=== PATIENT | female | born 1980 | race Caucasian/White ===

== ENCOUNTER 2017-07-13 03:09 | Emergency (ER) | payer BC, OTHER ==
[2017-07-13 03:21] VITALS: BP 94/56; PULSE 110; RESP 18; TEMP 98.4; O2SAT 96
--- NOTE | 2017-07-13 03:38 | C.PDOC ---
History Of Present Illness 37 year old female with a Hx of anxiety presents to the ER via EMS with a complaint of anxiety after having a domestic dispute. Patient states the police were called and insisted that she come to the ER for an evaluation. Patient states she feels very anxious and like her heart is racing; when asked what happened she says the problem is too personal to discuss. Patient notes she used to take xanax in the past but felt is was affecting her mood so she stopped taking it. Denies chest pain or SOB. Time Seen by Provider: 07/13/17 03:37 Chief Complaint (Nursing): Anxiety History Per: Patient History/Exam Limitations: no limitations Onset/Duration Of Symptoms: Hrs Current Symptoms Are (Timing): Still Present Suicide/Self Injury Attempted (Context): None Associated Symptoms: Anxiety. denies: Depression, Suicidal Thoughts, Suicidal Plan Involuntary Hold By: None Recent travel outside of the [place]: No Past Medical History Reviewed: Historical Data, Nursing Documentation, Vital Signs Vital Signs: Last Vital Signs Temp 98.4 F 07/13/17 03:14 Pulse 110 H 07/13/17 03:14 Resp 18 07/13/17 03:14 BP 94/56 L 07/13/17 03:14 Pulse Ox 96 07/13/17 05:14 - Medical History PMH: HTN Family History: States: Unknown Family Hx - Social History Hx Alcohol Use: Yes Hx Substance Use: No Review Of Systems Constitutional: Negative for: Fever, Chills Cardiovascular: Positive for: Palpitations. Negative for: Chest Pain Respiratory: Negative for: Shortness of Breath Gastrointestinal: Negative for: Nausea, Vomiting Psych: Positive for: Anxiety Physical Exam - Physical Exam Appears: Non-toxic, Other (Tearful) Skin: Normal Color, Warm, Dry Head: Atraumatic, Normacephalic Eye(s): bilateral: Normal Inspection Oral Mucosa: Moist Neck: Normal, Supple Chest: Symmetrical, No Tenderness Cardiovascular: Rhythm Regular (HR 120 approximately) Respiratory: Normal Breath Sounds, No Rales, No Rhonchi, No Wheezing Gastrointestinal/Abdominal: Soft, No Tenderness Neurological/Psych: Oriented x3, Normal Speech ED Course And Treatment O2 Sat by Pulse Oximetry: 96 (Room air) Pulse Ox Interpretation: Normal Medical Decision Making Medical Decision Making: Impression: Anxiety exacerbation. Xanax administered, on reevaluation, patient reports improvement and feel comfortable going home. Disposition - Disposition Referrals: [facility] [Outside] Disposition: HOME/ ROUTINE Disposition Time: 04:15 Condition: FAIR Prescriptions: Alprazolam [Xanax] 0.25 mg PO TID #15 tablet Instructions: Anxiety (ED) Forms: [facility] (Frisian) - Clinical Impression Clinical Impression: Anxiety - Scribe Statement The provider has reviewed the documentation as recorded by the Scribe Freddie James All medical record entries made by the Scribe were at my direction and personally dictated by me. I have reviewed the chart and agree that the record accurately reflects my personal performance of the history, physical exam, medical decision making, and the department course for this patient. I have also personally directed, reviewed, and agree with the discharge instructions and disposition.
== END 2017-07-13 04:10 | disposition home or self-care (01) ==
LOC: C.ER 03:09
DX: F41.9 Anxiety disorder, unspecified (principal)

== ENCOUNTER 2018-04-08 16:31 | Emergency (ER) | payer OTHER ==
[2018-04-08 16:47] VITALS: TEMP 99.5; O2SAT 98
[2018-04-08] MEDS ORDERED: Bacitracin 500 Units/gm Oint Foilpak UD TOP ONE (16:58)
--- NOTE | 2018-04-08 17:55 | CT ---
Date of service: 04/08/2018 PROCEDURE: CT HEAD WITHOUT CONTRAST. HISTORY: dizziness COMPARISON: None available. TECHNIQUE: Axial computed tomography images were obtained through the head/brain without intravenous contrast. Radiation dose: Total exam DLP = 982.97 mGy-cm. This CT exam was performed using one or more of the following dose reduction techniques: Automated exposure control, adjustment of the mA and/or kV according to patient size, and/or use of iterative reconstruction technique. FINDINGS: Streak artifact obscures evaluation of the skull base. HEMORRHAGE: No intracranial hemorrhage. BRAIN: No mass effect or edema. No atrophy or chronic microvascular ischemic changes. VENTRICLES: No hydrocephalus. CALVARIUM: Unremarkable. PARANASAL SINUSES: Unremarkable as visualized. No significant inflammatory changes. MASTOID AIR CELLS: Unremarkable as visualized. No inflammatory changes. OTHER FINDINGS: None. IMPRESSION: No acute intracranial pathology identified.
--- NOTE | 2018-04-08 18:00 | C.PDOC ---
History Of Present Illness 37 year female presents to the ED for evaluation of a head injury s/p trip and fall a few days ago. Patient reports ongoing forehead swelling and feeling lightheaded. Denies LOC, fever, other injuries, and any other associated symptoms. - HPI Time Seen by Provider: 04/08/18 16:55 Chief Complaint (Nursing): Trauma History Per: Patient History/Exam Limitations: no limitations Onset/Duration Of Symptoms: Hrs, Days Past Medical History Reviewed: Historical Data, Nursing Documentation, Vital Signs Vital Signs: Last Vital Signs Temp 99.5 F 04/08/18 16:43 Pulse 75 04/08/18 16:43 Resp 18 04/08/18 16:43 BP 168/115 H 04/08/18 16:43 Pulse Ox 98 04/08/18 16:43 - Medical History PMH: Anxiety, Depression, HTN Family History: States: Unknown Family Hx - Social History Hx Alcohol Use: Yes Hx Substance Use: No - Immunization History Hx Tetanus Toxoid Vaccination: No Hx Influenza Vaccination: No Hx Pneumococcal Vaccination: No Review Of Systems Except As Marked, All Systems Reviewed And Found Negative. Constitutional: Positive for: Other (Trip and fall. ) Physical Exam - Physical Exam Appears: Non-toxic, No Acute Distress Skin: Normal Color, Warm, Dry, Other (abrasion to the forehead, not infected.) Head: Atraumatic, Normacephalic Eye(s): bilateral: Normal Inspection, PERRL, EOMI Nose: Normal Oral Mucosa: Moist Chest: Symmetrical Cardiovascular: Rhythm Regular, No Murmur Respiratory: Normal Breath Sounds, No Rales, No Rhonchi, No Wheezing Gastrointestinal/Abdominal: Normal Exam, Soft, No Tenderness Extremity: Bilateral: Atraumatic, Normal Color And Temperature, Normal ROM Neurological/Psych: Oriented x3, Normal Speech Gait: Steady ED Course And Treatment O2 Sat by Pulse Oximetry: 98 (RA) Pulse Ox Interpretation: Normal - CT Scan/US CT Head Other Rad Studies (CT/US): Read By Radiologist CT/US Interpretation: FINDINGS: Streak artifact obscures evaluation of the skull base. HEMORRHAGE: No intracranial hemorrhage. BRAIN: No mass effect or edema. No atrophy or chronic microvascular ischemic changes. VENTRICLES: No hydrocephalus. CALVARIUM: Unremarkable. PARANASAL SINUSES: Unremarkable as visualized. No significant inflammatory changes. MASTOID AIR CELLS: Unremarkable as visualized. No inflammatory changes. OTHER FINDINGS: None. IMPRESSION: No acute intracranial pathology identified. Medical Decision Making Medical Decision Making: Plan: --CT head w/out contrast. --Given Ibuprofen. --Bacitracin was applied. --Urine HCG. Progress/Update: CT of the head was viewed by me and appeared normal. Patient stable for discharge home. Advised to follow up as needed. Disposition Counseled Patient/Family Regarding: Studies Performed, Diagnosis, Need For Followup, Rx Given - Disposition Referrals: Alena Leone MD [Staff Provider] - Disposition: HOME/ ROUTINE Disposition Time: 17:59 Condition: STABLE Additional Instructions: follow up with your doctor or medical clinic within 2 days call to make an appointment take medications as prescribed return to ER if symptoms worsens or progress apply bacitracin to wound twice daily Prescriptions: Naproxen [Naprosyn] 500 mg PO BID PRN #16 tab PRN Reason: Pain, Moderate (4-7) Instructions: Closed Head Injury (DC), Minor Head Injury, Skin Abrasions (DC) Forms: [facility] (Ukrainian), General Discharge Instructions - Clinical Impression Clinical Impression: Head injury, Abrasion - Scribe Statement The provider has reviewed the documentation as recorded by the Scribe (Afua Nicole) Provider Attestation: All medical record entries made by the Scribe were at my direction and personally dictated by me. I have reviewed the chart and agree that the record accurately reflects my personal performance of the history, physical exam, medical decision making, and the department course for this patient. I have also personally directed, reviewed, and agree with the discharge instructions and disposition.
[2018-04-08] MEDS ORDERED: Bacitracin 500 Units/gm Oint Foilpak UD ONE (18:05)
[2018-04-08 18:12] VITALS: BP 155/85; PULSE 74; RESP 16
== END 2018-04-08 18:11 | disposition home or self-care (01) ==
LOC: C.ER 16:31
DX: S00.81XA Abrasion of other part of head, initial encounter (principal); W01.0XXA Fall on same level from slipping, tripping and stumbling without subsequent striking against object, initial encounter